=== PATIENT | male | born 1965 | race Caucasian/White ===

== ENCOUNTER 2017-05-23 08:44 | Day surgery (SDC) | payer OTHER ==
[~2017-05-23] VITALS: Ht 180.3 cm; Wt 205.6 kg
[2017-05-23 09:11] VITALS: Ht 180.3 cm; Wt 205.6 kg
[2017-05-23 09:24] VITALS: BP 112/69; PULSE 67; RESP 17
[2017-05-23] MEDS ORDERED: MIDAZOLAM 1 MG/ML 2 ML INJ ONE ×3 (09:57)
[2017-05-23] MEDS ORDERED: FENTAnyl 50 MCG/ML VIAL ONE (09:57)
--- NOTE | 2017-05-23 09:57 | OPPN ---
Date/Time of Note Date/Time of Note DATE: 05/23/17 TIME: 09:56 Operative Report Preoperative Diagnosis Screening Postoperative Diagnosis Internal hemorrhoids No colon neoplasm is identified Operation/Procedure Performed Colonoscopy Surgeon see signature line assistant executive housekeeper None Anesthesia: moderate sedation Estimated blood loss: none Transfusion Required none Specimen None Grafts/Implants none Complications none BAILEY HILARIO MD May 23, 2017 09:57
--- NOTE | 2017-05-23 10:28 | GILP ---
DATE OF PROCEDURE: 05/23/2017 PROCEDURE PERFORMED: Colonoscopy. SURGEON: Delmis Pablo MD. PREOPERATIVE DIAGNOSIS: Screening colonoscopy. POSTOPERATIVE DIAGNOSES: 1. Colonoscopy all the way to the cecum. 2. Internal hemorrhoids. 3. No colon neoplasm was identified. INDICATION: Mr. Tramaine Johnson is a 52-year-old male patient who was scheduled for screening colonoscopy. The procedure and possible complications were well explained to the patient. He understood and consented to the procedure. DESCRIPTION OF PROCEDURE: Under influence of fentanyl and Versed, the colonoscope was carefully introduced in the rectum. Under direct vision, it was advanced all the way to the cecum. FINDINGS: The patient had internal hemorrhoids. No colitis or neoplasm was identified. He tolerated the procedure very well. There was no complication from the procedure. At the end of procedure he was awake with stable vital signs and he was discharged home in care of his family. IMPRESSION: 1. Colonoscopy all the way to the cecum. 2. Internal hemorrhoids. 3. No colon neoplasm was identified. PLAN: Next screening colonoscopy in 10 years. Dictated By: MD RIANA Corado/gian/parul /Document#: [id number]
== END 2017-05-23 15:55 | disposition home or self-care (01) ==
LOC: GIL 08:44
PROVIDERS: ATTEND Internal Medicine Gastroenterology
DX: Z12.11 Encounter for screening for malignant neoplasm of colon (principal); K64.8 Other hemorrhoids
CPT/HCPCS: 45378; J2250; J3010